=== PATIENT | female | born 1955 | race African-American/Black ===

== ENCOUNTER → 2016-11-07 | Outpatient (CLI) | payer OTHER ==
[2016-11-07 16:06] LABS: HEMATOCRIT 38.8 % (35.0-45.0); HEMOGLOBIN 12.8 gm/dL (12.0-16.0); MEAN CELL VOLUME 80.8 FL (83-96); MEAN CORPUSCULAR HEMOGLOBIN 26.7 PG (28-34); MEAN PLATELET VOLUME 9.1 FL (6.5-11.5); RED BLOOD COUNT 4.81 X10e (3.90-5.30); RED CELL DISTRIBUTION WIDTH 13.7 % (11.0-15.5); WHITE BLOOD COUNT 6.2 X10e3 (4.0-10.5)
[2016-11-07 17:09] LABS: THYROID STIMULATING HORMONE 0.45 uIU/ml (0.34-5.60)
[2016-11-07 17:16] LABS: FREE THYROXIN (T4) 0.67 ng/dL (0.58-1.64)
== END | disposition home or self-care (01) ==
LOC: CLAB 15:27
PROVIDERS: Specialist
DX: L65.9 Nonscarring hair loss, unspecified (principal)
CPT/HCPCS: 36415; 82728; 84439; 84443; 85027

== ENCOUNTER → 2016-12-29 | Outpatient (CLI) | payer OTHER ==
[2017-01-02 15:58] LABS: ANA SCREEN Negative (Negative); DHEA SULFATE 130 mcg/dL (12-133); TESTOSTERONE FREE (PNL) 2.3 pg/mL (0.1-6.4); TESTOSTERONE TOTAL(PNL) 13 ng/dL (2-45)
== END | disposition home or self-care (01) ==
LOC: CLAB 13:22
PROVIDERS: Specialist
DX: L65.9 Nonscarring hair loss, unspecified (principal); L73.0 Acne keloid; L30.0 Nummular dermatitis; L81.0 Postinflammatory hyperpigmentation; L85.3 Xerosis cutis
CPT/HCPCS: 36415; 82626; 84402; 84403; 86038; 86039